=== PATIENT | male | born 1975 ===

== ENCOUNTER 2017-05-29 10:04 | Outpatient (CLI) | payer OTHER | END 2017-05-29 17:00 | disposition home or self-care (01) | LOC: TOM 10:04 | DX: E04.1 Nontoxic single thyroid nodule (principal) ==

== ENCOUNTER → 2017-05-29 | Outpatient (CLI) | payer OTHER | END | disposition home or self-care (01) | LOC: LAB 09:38 | DX: I10 Essential (primary) hypertension (principal); E11.9 Type 2 diabetes mellitus without complications; E03.8 Other specified hypothyroidism; E78.2 Mixed hyperlipidemia; N40.0 Benign prostatic hyperplasia without lower urinary tract symptoms; M19.90 Unspecified osteoarthritis, unspecified site ==

== ENCOUNTER 2018-05-21 04:25 | Emergency (ER) | payer OTHER ==
[~2018-05-21] VITALS: Ht 180.3 cm; Wt 89.4 kg
== END 2018-05-21 09:55 | disposition home or self-care (01) ==
LOC: ER 04:25
DX: R10.13 Epigastric pain (principal)